=== PATIENT | female | born 1980 | race African-American/Black ===

== ENCOUNTER 2016-09-05 21:24 | Emergency (ER) | payer SELFPAY ==
[~2016-09-05] VITALS: Ht 157.5 cm; Wt 55.0 kg
[2016-09-05 21:27] VITALS: BP 120/71; PULSE 111; RESP 18; TEMP 98.6; O2SAT 98
--- NOTE | 2016-09-06 08:13 | EKG ---
Date Performed: 09/05/2016 Time Performed: 22:55:03 PTAGE: 36 years EKG: SINUS TACHYCARDIA INCOMPLETE RIGHT BUNDLE BRANCH BLOCK ABNORMAL RHYTHM ECG NO PREVIOUS TRACING DOCTOR: Sanchez Morocho Interpretating Date/Time 09/06/2016 08:11:44
== END 2016-09-06 00:27 | disposition left against medical advice (07) ==
LOC: NED 21:24
DX: M54.5 Low back pain (principal); R94.31 Abnormal electrocardiogram [ECG] [EKG]
CPT/HCPCS: 93005; 99281